=== PATIENT | male | born 1970 | race Caucasian/White ===

== ENCOUNTER → 2017-08-10 | Outpatient (CLI) | payer OTHER ==
[~2017-08-10] MED LIST: GADAVIST IV PRN
--- NOTE | 2017-08-10 11:58 | DIAGNOSTIC IMAGING REPORT ---
CERVICAL WITHOUT CONTRAST HISTORY: 47 years-old Male CORD COMPRESSION acute right-sided neck pain with radiation into the right upper extremity COMPARISON: None available TECHNIQUE: Multiplanar multisequence MRI of the cervical spine was obtained without contrast. FINDINGS: The large [id number] fire fighting equipment specialist localizer images demonstrate an ill-defined irregular area of increased signal within the right suprahilar lung nicely seen on image 25 series 1 and image 10 series 10. Additionally, there is a large 5.2 x 2.7 cm mass with intermediate T2 signal involving the posterior mediastinum displacing the esophagus anteriorly anterior to the T2-T5 vertebral bodies. Nicely seen on image 13 series 8. There is edema within the adjacent T2 and T3 vertebral bodies with decreased T1 signal of the T3 vertebral body suggesting lesion invasion. There is also edema in the bilateral pedicles at T3, not entirely imaged. The axial images do not image this area. Moderate surrounding edema surrounds this lesion. Posterior fossa structures are unremarkable. Mild adenoid tonsillar hypertrophy. C2-C3: Mild intervertebral disc space narrowing with uncovertebral spurring and mild facet arthropathy. No central canal or foraminal narrowing. C3-C4: Mild intervertebral disc space narrowing with uncovertebral spurring and mild facet arthropathy. Findings cause mild right foraminal narrowing. Central canal and left foramen are patent. C4-C5: Mild intervertebral disc space narrowing with posterior disc osteophyte complex formation and mild facet arthrosis. Mild right foraminal narrowing. Central canal and left foramen are patent. C5-C6: Mild to moderate intervertebral disc space narrowing with circumferential disc osteophyte complex causes mild central canal, mild left and moderate right foraminal narrowing. C6-C7: Broad-based posterior disc osteophyte complex with mild facet arthrosis causes mild central canal narrowing. Neuroforamen are generally patent. C7-T1: Mild facet arthropathy without significant central canal or foraminal narrowing. IMPRESSION: 1. Large 5.2 cm mass of the posterior mediastinum anterior to the T2-T5 vertebral bodies is only partially imaged on this study however is very suspicious for malignant neoplasm. Associated decreased T1 signal and extensive bone marrow edema of the T3 vertebral body suggests associated tumor invasion. Correlation with CT of the chest and thoracic spine MRI recommended to further evaluate. 2. Partially imaged apparent lesion of the right upper lobe as above could also be characterized with CT of the chest. 3. Discogenic degenerative of the cervical spine are most pronounced at the C4-C7 levels as above with mild central canal narrowing at C5-C6 and C6-C7. The above report was generated using voice recognition software. It may contain grammatical, syntax or spelling errors. Electronically signed by: Adryan Trevino M.D. 08/10/2017 11:57 AM Dictated Date/Time: 08/10/2017 11:03 AM
== END | disposition home or self-care (01) ==
LOC: C.MRI 10:12
PROVIDERS: ATTEND Orthopaedic Surgery Orthopaedic Surgery of the Spine
DX: G95.20 Unspecified cord compression (principal); R22.2 Localized swelling, mass and lump, trunk

== ENCOUNTER → 2017-08-13 | Outpatient (CLI) | payer OTHER ==
[~2017-08-13] MED LIST changes: -GADAVIST IV PRN; +OPTIRAY 320 IV PRN
--- NOTE | 2017-08-13 08:08 | DIAGNOSTIC IMAGING REPORT ---
CT OF THE CHEST WITH IV CONTRAST CLINICAL HISTORY: ABNORMAL IMAGING,LARGE MASS COMPARISON STUDY: Outside chest x-ray dated 08/11/2017 , MRI the cervical spine dated 08/10/2017 TECHNIQUE: Following the IV administration of 92 mL of Optiray-320, CT of the thorax was performed from the thoracic inlet to the lung bases. Images are reviewed in the axial, sagittal, and coronal planes. IV contrast was administered without complication. A dose lowering technique was utilized adhering to the principles of ALARA. CT DOSE: 233.81 mGy.cm FINDINGS: Thyroid: Imaged portions of the thyroid gland are normal in appearance. Thoracic aorta: The thoracic aorta is normal in course and caliber, noting standard 3-vessel arch anatomy. No aneurysm or dissection is seen. Pulmonary vasculature: The pulmonary trunk is normal in caliber. There are no central filling defects identified to suggest pulmonary embolus. Note that this examination was not protocoled for the evaluation of pulmonary emboli. HEART: The heart is normal in size and configuration, without pericardial effusion. Lungs and pleural spaces: There are no pleural effusions. There is pulmonary emphysema. There is a 9 mm right lower lobe perifissural nodule. There is a 4 mm right upper lobe perifissural nodule. There is an irregularly marginated 23 mm right upper lobe pulmonary nodule. Mediastinum: There is a large mediastinal mass located posterior to the trachea with indentation of contiguous vertebral bodies. This mass measures 6.1 cm transversely, 3.4 cm in AP diameter, and 7 cm in craniocaudad dimension. There are adjacent pathologic paratracheal lymph nodes. There is subcarinal adenopathy. There are bony destructive changes involving the T2, T3, and T4 vertebra. Marybel: There is right hilar adenopathy. Axilla: There is no evidence of pathologic axillary lymphadenopathy Upper abdomen: Partially visualized upper abdominal viscera is within normal limits. Skeletal structures: There are bony destructive changes involve the T2, T3, and T4 vertebral bodies. IMPRESSION: 1. 23 mm irregular marginated right upper lobe pulmonary nodule, highly suspicious for neoplasm 2. 7 x 6 x 3 cm mediastinal mass located posterior to the trachea with contiguous bony destructive changes involving the T2, T3, and T4 vertebral bodies 3. Right hilar and paratracheal, and subcarinal lymphadenopathy 4. Nonspecific 9 mm right lower lobe and 4 mm right upper lobe perifissural nodules 5. Pulmonary emphysema Electronically signed by: Bishop Baer M.D. 08/13/2017 8:07 AM Dictated Date/Time: 08/13/2017 7:56 AM
--- NOTE | 2017-08-13 09:02 | DIAGNOSTIC IMAGING REPORT ---
THORACIC SPINE COMBO CLINICAL HISTORY: Paraspinal mass COMPARISON STUDY: CT scan dated 08-29, MRI the cervical spine dated 08/10/2017 FINDINGS: Imaging was performed in the axial and sagittal planes, before and after the administration of 7.5 cc of intravenous Gadavist. There is a prevertebral mediastinal mass extending from the inferior T1 to the mid T6 level. This mass measures approximately 9.3 cm in craniocaudad distance. There are areas of contiguous marrow replacement involving the T2,T3 and T4 vertebra, consistent with neoplasm. There is a nonspecific 8 mm rounded focus of increased T2 signal within the T8 vertebra. No intrinsic cord lesions are visualized. There is no evidence of epidural tumor spread. There are no pathologically enhancing epidural or cord lesions. IMPRESSION: 1. Large prevertebral mediastinal mass with direct neoplastic invasion of the T2, T3, and T4 vertebra 2. Additional nonspecific 8 mm lesion within the T8 vertebra 3. No cord lesions identified. No evidence of epidural tumor. Electronically signed by: Bishop Baer M.D. 08/13/2017 9:01 AM Dictated Date/Time: 08/13/2017 8:55 AM
== END | disposition home or self-care (01) ==
LOC: C.CTS 07:33
PROVIDERS: ATTEND Orthopaedic Surgery Orthopaedic Surgery of the Spine
DX: R94.31 Abnormal electrocardiogram [ECG] [EKG] (principal); J43.9 Emphysema, unspecified; R22.9 Localized swelling, mass and lump, unspecified

== ENCOUNTER → 2017-08-27 | Day surgery (SDC) | payer OTHER ==
[2017-08-25 15:53] VITALS: BMI 24.0
[~2017-08-27] VITALS: Ht 167.6 cm; Wt 68.2 kg
[~2017-08-27] MED LIST changes: +ATROPINE SULFATE 0.1 MG/ML 5ML SYR IV PRN; +CLINDAMYCIN PHOS 150 MG/ML 2 ML VIAL ONE; +DEXAMETHASONE SOD INJ 4 MG/ML VIAL ONE; +DOCU-94 PO; +EpHEDrine SULFATE INJ 50 MG/ML AMP IV PRN; +FENT75DI2 EX; +FENTANYL 75 MCG/HR TDSY TD SCH; +FENTANYL CITRATE INJ 50 MCG/1 ML 2 ML VIAL IV PRN; +FENTANYL CITRATE INJ 50 MCG/1 ML 2 ML VIAL ONE; +FLUMAZENIL 0.1 MG/1 ML 10 ML VIAL IV PRN; +GLYCOPYRROLATE INJ 0.2 MG/ML VIAL ONE; +HYDROmorphone INJ 2 MG/ML SYR/VIAL IV PRN; +LABETALOL HCL IV 5 MG/ML 20ML IV PRN; +LACTATED RINGER'S 1000ML 1,000 ML IV SCH; +LIDOCAINE HCL 2% 2 ML VIAL (20MG/ML) ONE; +MEPERIDINE HCL 25 MG/ML CARP IV PRN; +MIDAZOLAM HCL 1 MG/ML 2ML VIAL ONE; +MoRPHine SULFATE 2 MG/ML CARP IV PRN; +NALOXONE HCL 0.4 MG/1 ML VIAL/CARP IV PRN; +NEOSTIGMINE METHYLSULFATE 5 MG/5 ML SYR ONE; +ONDANSETRON INJ 2 MG/ML 2 ML VIAL IV PRN; +ONDANSETRON INJ 2 MG/ML 2 ML VIAL ONE; -OPTIRAY 320 IV PRN; +PHENYLEPHRINE 100MCG/ML 5ML SYR IV PRN; +PRED20TA PO; +PROPOFOL IV EMULSION 10 MG/ML 20 ML VIAL IV ONE; +ROCURONIUM BROMIDE 10 MG/ML 5 ML VIAL IV ONE; +TRAMADOL HCL 50 MG TAB PO PRN; +ULT/50 PO
[2017-08-27 09:23] VITALS: BP 117/71; PULSE 87; TEMP 36.5; O2SAT 95; Ht 167.6 cm; Wt 68.2 kg
--- NOTE | 2017-08-27 10:00 | History & Physical Bridge Note ---
H&P Re-Evaluation Bridge Note: I have examined the patient, reviewed the History & Physical and in the interval since the performance of the History & Physical I have noted the following changes of clinical significance: Discussed at our multidisciplinary Thoracic conference yesterday. Dr Braulio Salvador will evaluate today in PACU and will add 'possible mediastinoscopy' in case FNA from EBUS / ENB nondiagnostic. No changes noted
--- NOTE | 2017-08-27 10:04 | Discharge Instructions ---
Discharge Instructions Date of Service Aug 27, 2017. Visit Reason for Visit: Pulmonary Nodule, Mediastinal Adenopathy Discharge Discharge Diagnosis / Problem: Pulmonary Nodule, Mediastinal Adenopathy Discharge Goals Goal(s): Learn about illness Activity Recommendations Activity Limitations: resume your previous activity (in 24 hours) Anesthesia . Post Anesthesia Instructions: If you have had General Anesthesia or IV Sedation: * Do not drive today. * Resume driving when surgeon permits. * Do not make important decisions or sign legal documents today. * Call surgeon for: 1. Temperature elevations greater than 101 degrees F. 2. Uncontrollable pain. 3. Excessive bleeding. 4. Persistent nausea and vomiting. 5. Medication intolerance (nausea, vomiting or rash). * For nausea and vomiting use only clear liquids such as: tea, soda, bouillon until nausea subsides, then gradually increase diet as tolerated. * If you have any concerns or questions, call your surgeon's office. If physician is unavailable and it is an emergency, call 911 or go to the nearest emergency room. . Instructions / Follow-Up Instructions / Follow-Up 1. You may cough up some blood. Call physician if excessive amount noted. 2. Keep your scheduled appointment with Dr. Camilo on September 06, 2017 @ 10:00 Diet Recommendations Recommended Home Diet: resume previous diet Pending Studies Studies pending at discharge: no Medical Emergencies . Who to Call and When: Medical Emergencies: If at any time you feel your situation is an emergency, please call 911 immediately. . Non-Emergent Contact Non-Emergency issues call your: Surgeon Call Non-Emergent contact if: you have a fever, your pain is not controlled . . "Provider Documentation" section prepared by Aravind Garcia. .
--- NOTE | 2017-08-27 13:16 | [facility] Post Operative Brief Note ---
Immediate Operative Summary Operative Date Aug 27, 2017. Pre-Operative Diagnosis Mediastinal adenopathy, pulmonary nodule Post-Operative Diagnosis Carcinoma Procedure(s) Performed Endobronchial Ultrasound; Mediastinoscopy with lymph node biopsies Surgeon Dr. Camilo Defense Travel Administrator Surgeon(s) Aravind Garcia PA-C Estimated Blood Loss 5 mL Findings Consistent with Post-Op Diagnosis Specimens EBUS specimens obtained and collected by respiratory and cytology staff Frozen Section #1. R4 Lymph Node Sent to lab at 1250; carried by OR aide Results called and reported to physician at Permanent specimens A: R4 lymph nodes x2 B: R2 lymph node Anesthesia Type General
--- NOTE | 2017-08-27 14:04 | DIAGNOSTIC IMAGING REPORT ---
CHEST ONE VIEW PORTABLE CLINICAL HISTORY: Mediastinoscopy. COMPARISON STUDY: Chest CT August 13, 2017. FINDINGS: There is no pneumothorax or pleural effusion. No pneumomediastinum is identified on this exam. Upper mediastinal widening is due to the posterior mediastinal mass shown on CT of August 13, 2017. There is emphysema. No consolidation is present. IMPRESSION: 1. No pneumothorax, pleural effusion or evidence for pneumomediastinum. 2. Upper mediastinal widening due to the posterior mediastinal mass, better depicted on prior chest CT. Electronically signed by: Brennan Oates M.D. 08/27/2017 2:03 PM Dictated Date/Time: 08/27/2017 2:01 PM
[2017-08-27 14:17] VITALS: BP 138/73; PULSE 81; TEMP 36.6; O2SAT 94
--- NOTE | 2017-08-27 14:22 | Anesthesiology Progress Note ---
Anesthesia Post Op Note Date & Time Aug 27, 2017 at 14:21 Vital Signs Pain Intensity: 3 Vital Signs Past 12 Hours Date Time Temp Pulse Resp B/P (MAP) Pulse Ox O2 Delivery O2 Flow Rate FiO2 08/27/17 14:10 77 12 134/77 96 Nasal Cannula 2 08/27/17 14:05 36.1 80 18 137/81 96 Nasal Cannula 2 08/27/17 13:55 79 13 135/84 94 Nasal Cannula 2 08/27/17 13:45 88 15 152/97 97 Oxymask 10 08/27/17 13:35 86 10 131/83 98 Oxymask 10 08/27/17 13:27 36.1 104 16 120/88 99 Oxymask 10 08/27/17 09:23 36.5 87 22 117/71 (86) 95 Room Air Notes Mental Status: alert / awake / arousable, participated in evaluation Pt Amnestic to Procedure: Yes Nausea / Vomiting: adequately controlled Pain: adequately controlled Airway Patency, RR, SpO2: stable & adequate BP & HR: stable & adequate Hydration State: stable & adequate Anesthetic Complications: no major complications apparent
--- NOTE | 2017-08-27 14:39 | OPERATIVE REPORT ---
DATE OF OPERATION: 08/27/2017 PREOPERATIVE DIAGNOSES: Mediastinal mass and right upper lobe mass with bony involvement. POSTOPERATIVE DIAGNOSIS: Metastatic squamous cell carcinoma. PROCEDURE: 1. Endobronchial ultrasound with biopsy. 2. Video mediastinoscopy. SURGEON: Ritesh Camilo MD BIOSTATISTICS TEACHER: VINNIE Egan (Mr. Garcia was present for the entire endobronchial ultrasound and was instrumental in collecting the specimen. He was also first assisted the entire mediastinoscopy and closed the skin incision). ANESTHESIA: General anesthesia endotracheal intubation. INDICATION FOR PROCEDURE AND FINDINGS: Dillon Craig is a 47-year-old with a long history of heavy cigarette smoking who had upper thoracic back pain and underwent a study and was found to have a mass in his mediastinum. He replaced several vertebral bodies. He had had a right upper lobe mass and mediastinal adenopathy. I felt we can make a diagnosis with an endobronchial ultrasound and also possibly an electromagnetic navigational bronchoscopy. In addition, I obtained a consent for a video mediastinoscopy as given his involvement of the spine, I felt it prudent to not leave the operating room without a diagnosis. On 08/27/2017, the patient was brought to the operating room and underwent uncomplicated endobronchial ultrasound. I biopsied the level 7, right level 4, right level 10 and level a level 3/retro tracheal mass multiple times. Some of the cells were suspicious but they could not call it. We did well over 25 separate needle biopsies. We did get lymphocytes back but no evidence of obvious cancer. I then attempted an electromagnetic navigational bronchoscopy and I simply could not get to the small right upper lobe mass and I did not feel we would make a diagnosis. For this reason, I did not do any biopsies even though I did place the navigational probe out to the mass. I was not in a good position to biopsy this. I then proceeded with video mediastinoscopy and quite quickly came upon an abnormal right level 4 node and frozen section showed this to be a squamous cell carcinoma. We had plenty of tissue. He tolerated it well. DESCRIPTION OF PROCEDURE: The patient brought to operating room and laid in supine position. General anesthesia was induced. Endotracheal patient was performed. After appropriate timeout had been given and prophylactic antibiotics administered and endobronchial ultrasound scope was placed. I saw no endobronchial lesions. I went down and immediately biopsy the tracheal mass which was simply huge. I biopsied multiple times but we could not get a diagnosis. I biopsied level 4 and there were suspicious cells. Biopsied right level 10, I biopsied the level 7 nodes. We got lymphatic tissue back but we did not get a definite diagnosis of cancer. A biopsy of the retrotracheal node multiple times. After in excess of 25 biopsies, I elected to abort this and proceed with electromagnetic navigational bronchoscopy. I removed the endobronchial ultrasound scope and placed a fiberoptic scope. We saw no significant bleeding. There was obviously a mass behind the membranous trachea. I then navigated out to the mass after registering the airways. I could not get a straight shot. I got around this, but the airway did not lead directly to this mass. He had already been on the table for good bit of time and I was afraid we would not make a diagnosis. For this reason, I aborted the electromagnetic navigational bronchoscopy. I came back and performed a video mediastinoscopy. After the patient was prepped and draped in usual sterile fashion, another time out called, I positioned his head correctly. Incision was made one fingerbreadth above the sternal notch. Sharp and blunt dissection went down to the strap muscles, which were in the midline. I went above the tracheal isthmus went down and made a pretracheal plane. Upon placing the video mediastinoscope, we immediately came upon a huge level 4 node which we biopsied. We sent this for frozen section. While waiting for this to come back, I removed a level 2 node which looked normal its entirety. Then went down and removed more of the level 4 node. We repaired this and culture if we did not get a diagnosis of cancer. I removed a very large amount of this node and then frozen section came back as a probable squamous cell carcinoma. There was no significant bleeding. We did not biopsy anything on the left side. We slowly withdrew the video mediastinoscope. Strap muscles were reapproximated with 3-0 Vicryl suture. A 4-0 Monocryl was used to close the skin. We had negligible blood loss and he awakened without difficulty. I attest to the content of the Intraoperative Record and any orders documented therein. Any exception s are noted below.
[2017-08-27 14:50] VITALS: BP 132/72; PULSE 93; TEMP 36.5; O2SAT 96
[2017-08-27 15:25] VITALS: BP 135/74; PULSE 87; TEMP 36.5; O2SAT 94
== END | disposition home or self-care (01) ==
LOC: C.ACU 08:43
PROVIDERS: ATTEND Surgery
DX: C77.1 Secondary and unspecified malignant neoplasm of intrathoracic lymph nodes (principal); R91.1 Solitary pulmonary nodule; L85.8 Other specified epidermal thickening; F17.200 Nicotine dependence, unspecified, uncomplicated; Z88.2 Allergy status to sulfonamides; R63.4 Abnormal weight loss; Z79.899 Other long term (current) drug therapy

== ENCOUNTER → 2017-09-01 | Outpatient (CLI) | payer OTHER ==
[~2017-09-01] MED LIST changes: -ATROPINE SULFATE 0.1 MG/ML 5ML SYR IV PRN; -CLINDAMYCIN PHOS 150 MG/ML 2 ML VIAL ONE; -DEXAMETHASONE SOD INJ 4 MG/ML VIAL ONE; -EpHEDrine SULFATE INJ 50 MG/ML AMP IV PRN; -FENTANYL 75 MCG/HR TDSY TD SCH; -FENTANYL CITRATE INJ 50 MCG/1 ML 2 ML VIAL IV PRN; -FENTANYL CITRATE INJ 50 MCG/1 ML 2 ML VIAL ONE; -FLUMAZENIL 0.1 MG/1 ML 10 ML VIAL IV PRN; -GLYCOPYRROLATE INJ 0.2 MG/ML VIAL ONE; -HYDROmorphone INJ 2 MG/ML SYR/VIAL IV PRN; -LABETALOL HCL IV 5 MG/ML 20ML IV PRN; -LACTATED RINGER'S 1000ML 1,000 ML IV SCH; -LIDOCAINE HCL 2% 2 ML VIAL (20MG/ML) ONE; -MEPERIDINE HCL 25 MG/ML CARP IV PRN; -MIDAZOLAM HCL 1 MG/ML 2ML VIAL ONE; -MoRPHine SULFATE 2 MG/ML CARP IV PRN; -NALOXONE HCL 0.4 MG/1 ML VIAL/CARP IV PRN; -NEOSTIGMINE METHYLSULFATE 5 MG/5 ML SYR ONE; -ONDANSETRON INJ 2 MG/ML 2 ML VIAL IV PRN; -ONDANSETRON INJ 2 MG/ML 2 ML VIAL ONE; -PHENYLEPHRINE 100MCG/ML 5ML SYR IV PRN; -PROPOFOL IV EMULSION 10 MG/ML 20 ML VIAL IV ONE; -ROCURONIUM BROMIDE 10 MG/ML 5 ML VIAL IV ONE; -TRAMADOL HCL 50 MG TAB PO PRN
--- NOTE | 2017-09-02 07:33 | DIAGNOSTIC IMAGING REPORT ---
PET/CT SKULL-THIGH CLINICAL HISTORY: Lung carcinoma COMPARISON STUDY: CT scan dated August 13, 2017 FINDINGS: The patient was injected with 12.6 mCi of F 18 labeled FDG. Findings standard induction phase, PET/CT scanning was performed from the skull base the upper thigh region. Within the neck, there are clustered FDG avid left supraclavicular lymph nodes with SUV maximum of 7.5. The largest node measures 15 mm. There is also increased FDG activity in the region of the left vocal cord extending to the arytenoid footplate. There is no corresponding CT abnormality.. Within the chest, there is an FDG avid right paratracheal adenopathy. There is a 22 mm lymph node with SUV maximum of 8.8. This is contiguous with a large prevertebral mass measuring 6.9 cm transversely and 5.3 cm in AP diameter. This mass displaces the trachea anteriorly. There is direct extension into the adjacent vertebral bodies. The mass has an SUV maximum of 9.5. There is decreased activity centrally suggesting central necrosis. There is an FDG avid right hilar adenopathy with SUV maximum of 6.6. There are destructive changes involving the T2, T3, and T4 vertebra. An apparent focus of increased FDG activity within the spinal canal at the T4 level may represent misregistration artifact, given the prior MRI findings. There are no pleural effusions. There is pulmonary emphysema. Within the abdomen and pelvis there is physiologic urinary tract and bowel activity. There is no pathologic td activity below the diaphragm. There are no FDG avid hepatic or adrenal lesions. IMPRESSION: 1. Large FDG avid prevertebral mediastinal mass with direct neoplastic invasion of the T2, T3, and T4 vertebra. The mass measures 6.9 cm transversely and 5.3 cm in AP diameter. The mass has an SUV maximum of 9.5. There is decreased activity centrally suggesting central necrosis 2. FDG avid right hilar adenopathy, and right paratracheal adenopathy. 3. FDG avid left supraclavicular adenopathy. 4. Nonspecific increased activity involving the left vocal cord with out a CT correlate 5. No pathologic activity within the abdomen or pelvis Electronically signed by: Bishop Baer M.D. 09/02/2017 7:32 AM Dictated Date/Time: 09/02/2017 7:20 AM
== END | disposition home or self-care (01) ==
LOC: C.PET 14:00
PROVIDERS: ATTEND Radiology Radiation Oncology
DX: C34.11 Malignant neoplasm of upper lobe, right bronchus or lung (principal)